=== PATIENT | male | born 1980 | race Caucasian/White ===

== ENCOUNTER 2019-05-22 17:59 | Emergency (ER) | payer BC ==
[~2019-05-22] VITALS: Ht 172.7 cm; Wt 68.0 kg
[2019-05-22 18:04] VITALS: BP 129/83
[2019-05-22] MEDS ORDERED: CefTRIAXone 250MG IM Kit w/LIDOcaine IM ONE (19:35)
[2019-05-22] MEDS ORDERED: metroNIDAZOLE 500mg tablet PO ONE (19:35)
[2019-05-22] MEDS ORDERED: azithromycin 250mg tablet PO ONE (19:35)
[2019-05-22 20:28] LABS: CLARITY,URINE CLOUDY (Clear); COLOR,URINE YELLOW (Yellow); GLUCOSE, URINE NEGATIVE (Neg); KETONES,URINE NEGATIVE (Neg); LEUKOCYTE ESTERASE ,URINE LARGE (Neg); NITRITES, URINE NEGATIVE (Neg); OCCULT BLOOD,URINE MODERATE (Neg); PROTEIN,URINE 30 mg/dl (Neg); UROBILINOGEN,URINE 0.2 E.U/dL (0.2-1.0)
[2019-05-22] MEDS ORDERED: SULF1TAB49 PO (20:33)
[2019-05-22 20:51] LABS: UA COLLECTION TYPE CLN CATCH MIDSTREAM
[2019-05-22 20:53] LABS: BACTERIA,URINE FEW /HPF (Neg); RBC,URINE 20-50 /HPF (0-2); SQUAMOUS EPITHELIAL CELL,UR NONE SEEN /LPF (FEW); WBC,URINE TNTC /HPF (0-4)
[2019-05-24 05:11] LABS: RPR Non Reactive (Non Reactive)
== END 2019-05-22 20:30 | disposition home or self-care (01) ==
LOC: ER 17:59
DX: A64 Unspecified sexually transmitted disease (principal); N48.89 Other specified disorders of penis; F15.90 Other stimulant use, unspecified, uncomplicated
CPT/HCPCS: 36415; 81001; 86592; 87088; 87491; 87591; 96372; 99283; J0696; J3490